=== PATIENT | female | born 1975 | race Hispanic/Latino ===

== ENCOUNTER 2017-05-22 07:31 | Emergency (ER) | payer OTHER ==
[2017-05-22] MEDS ORDERED: IBUPROFEN 400 MG TABLET ONE (07:45)
[2017-05-22] MEDS ORDERED: IBUPROFEN 200 MG TAB ONE (07:45)
== END 2017-05-22 08:50 | disposition home or self-care (01) ==
LOC: EDH 07:31
DX: S42.251A Displaced fracture of greater tuberosity of right humerus, initial encounter for closed fracture (principal); E11.9 Type 2 diabetes mellitus without complications; Z79.4 Long term (current) use of insulin; I10 Essential (primary) hypertension; Y08.89XA Assault by other specified means, initial encounter; Y93.89 Activity, other specified; Y92.238 Other place in hospital as the place of occurrence of the external cause; Y99.8 Other external cause status
CPT/HCPCS: 73030